=== PATIENT | female | born 1945 | race Caucasian/White ===

== ENCOUNTER 2017-08-20 04:42 | Inpatient (IN) | payer MEDICAID ==
[2017-08-20 07:56] LABS: WHITE BLOOD COUNT 9.8 10^3/ul (4.8-10.8)
[2017-08-20 07:56] LABS: ABNORMAL IP MESSAGE 1; HEMATOCRIT 35.1 % (37.0-47.0); HEMOGLOBIN 11.4 g/dl (12.0-16.0); MEAN CORPUSCULAR HEMOGLOBIN 29.8 pg (29.0-33.0); MEAN CORPUSCULAR HGB CONC 32.5 g/dl (32.0-37.0); MEAN CORPUSCULAR VOLUME 91.6 fl (82.0-101.0); RED BLOOD COUNT 3.83 10^6/ul (4.20-5.40); RED CELL DISTRIBUTION WIDTH 15.9 % (11.5-14.5)
[2017-08-20 07:58] LABS: PLATELET COUNT 3 10^3/UL (140-415)
[2017-08-20 07:59] LABS: ADD MAN DIFF? YES; PATH REVIEW? YES; POSITIVE DIFF @See below
[2017-08-20 08:17] LABS: ALANINE AMINOTRANSFERASE 28 IU/L (13-69); ALBUMIN 4.2 g/dl (3.3-4.9); ALBUMIN/GLOBULIN RATIO 1.16; ALKALINE PHOSPHATASE 92 IU/L (42-121); ANION GAP 18 (8-16); ASPARTATE AMINO TRANSFERASE 24 IU/L (15-46); BILIRUBIN,INDIRECT 0.5 mg/dl (0-1.1); BILIRUBIN,TOTAL 0.5 mg/dl (0.2-1.3); BLOOD UREA NITROGEN 22 mg/dl (7-20); CALCIUM 8.7 mg/dl (8.4-10.2); CARBON DIOXIDE 28 mmol/L (21-31); CHLORIDE 102 mmol/L (97-110); CREATININE 0.97 mg/dl (0.44-1.00); GLUCOSE 110 mg/dl (70-220); POTASSIUM 3.9 mmol/L (3.5-5.1); SODIUM 144 mmol/L (135-144); TOTAL PROTEIN 7.8 g/dl (6.1-8.1)
[2017-08-20 08:20] LABS: ADD UMIC YES; UR ASCORBIC ACID NEGATIVE (NEGATIVE); UR BACTERIA FEW /HPF (NONE SEEN); UR BILIRUBIN (Dip) NEGATIVE (NEGATIVE); UR BLOOD (Dip) 3+ mg/dL (NEGATIVE); UR CLARITY CLEAR (CLEAR); UR COLOR YELLOW (YELLOW); UR GLUCOSE (Dip) NEGATIVE (NEGATIVE); UR KETONES (Dip) NEGATIVE (NEGATIVE); UR LEUKOCYTE ESTERASE (Dip) NEGATIVE Leu/ul (NEGATIVE); UR MUCUS FEW /HPF (NONE SEEN); UR NITRITE (Dip) NEGATIVE (NEGATIVE); UR RBC 42 /HPF (0-5); UR SPECIFIC GRAVITY (Dip) 1.018 (1.003-1.030); UR TOTAL PROTEIN (Dip) NEGATIVE (NEGATIVE); UR UROBILINOGEN (Dip) 2+ mg/dL (NEGATIVE); UR WBC 4 /HPF (0-5)
[2017-08-20 08:46] LABS: INR 1.05; PROTIME 13.8 Sec (11.9-14.9); PT RATIO 1.1
[2017-08-20 08:47] LABS: PARTIAL THROMBOPLASTIN TIME 28.6 Sec (25.0-35.0)
[2017-08-20 09:07] LABS: BAND NEUTROPHILS #M 0.3 10^3/ul (0.0-0.6); BAND NEUTROPHILS % (M) 4 % (0-4); EOSINOPHILS % (M) 8 % (0-7); LYMPHOCYTES #M 2.6 10^3/ul (0.8-2.9); LYMPHOCYTES % (M) 27 % (15-51); METAMYELOCYTES %M 1 % (0-0); MICROCYTOSIS 1+ (0-0); MONOCYTE #M 0.2 10^3/ul (0.3-0.9); MONOCYTES % (M) 3 % (0-11); OVALOCYTES 1+ (0-0); PLATELET ESTIMATE SIG DECREASED; POLYCHROMASIA 1+ (0-0); SEG NEUT #M 5.6 10^3/ul (1.7-7.5); SEGMENTED NEUTROPHILS (M) % 57 % (39-77); SMUDGE%M 5 % (0-0)
[2017-08-20] MEDS ORDERED: ACETAMINOPHEN 325 MG TAB PO (10:00)
[2017-08-20] MEDS ORDERED: ONDANSETRON 4 MG INJ IV (10:00)
[2017-08-20 14:46] LABS: HAAIG REFLEX REFLEX FILED
[2017-08-20 15:21] LABS: IRON 46 ug/dl (35-150)
[2017-08-20 15:32] LABS: % IRON SATURATION 12 % SAT (22-52); TOTAL IRON BINDING CAPACITY 372 ug/dl (241-421)
[2017-08-20 15:55] LABS: HEPATITIS B SURFACE ANTIGEN NEGATIVE (NEGATIVE)
[2017-08-20 16:12] LABS: HEPATITIS B CORE ANTIBODY NEGATIVE (NEGATIVE); HEPATITIS C VIRAL ANTIBODY NEGATIVE (NEGATIVE)
[2017-08-20 16:28] LABS: FOLATE 17.7 ng/ml (2.8-20.0)
[2017-08-20 16:42] LABS: HIV 1&2 ANTIBODY NEGATIVE (NEGATIVE)
[2017-08-20] MEDS: BARIUM SULF 2% 450 ML BTL (BERRY SMOOTHIE) PO (16:55)
[2017-08-20 17:04] LABS: CARCINOEMBRYONIC ANTIGEN 4.2 ng/ml (0.0-5.0)
[2017-08-20 17:05] LABS: CANCER ANTIGEN 125 13.8 U/ml (0.0-35.0)
[2017-08-20 17:08] LABS: CANCER ANTIGEN 19-9 < 1.4 U/ml (0.0-37.0)
[2017-08-20 20:30] LABS: INR 1.05; PROTIME 13.8 Sec (11.9-14.9); PT RATIO 1.1
[2017-08-20 20:31] LABS: PARTIAL THROMBOPLASTIN TIME 27.1 Sec (25.0-35.0)
[2017-08-20 20:33] LABS: D-DIMER 589.87 ng/ml (<460)
[2017-08-20 20:42] LABS: IMMUNOGLOBULIN A 362 mg/dl (70-400); IMMUNOGLOBULIN G 1380 mg/dl (700-1600); IMMUNOGLOBULIN M 61 mg/dl (40-230)
[2017-08-21] MEDS ORDERED: LEVOTHYROXINE 25 MCG TAB (05:50)
[2017-08-21] MEDS: LEVOTHYROXINE 25 MCG TAB PO (05:53)
[2017-08-21 06:59] LABS: WHITE BLOOD COUNT 7.8 10^3/ul (4.8-10.8)
[2017-08-21 06:59] LABS: ABNORMAL IP MESSAGE 1; HEMATOCRIT 33.8 % (37.0-47.0); HEMOGLOBIN 11.1 g/dl (12.0-16.0); MEAN CORPUSCULAR HEMOGLOBIN 30.2 pg (29.0-33.0); MEAN CORPUSCULAR HGB CONC 32.8 g/dl (32.0-37.0); MEAN CORPUSCULAR VOLUME 91.8 fl (82.0-101.0); RED BLOOD COUNT 3.68 10^6/ul (4.20-5.40)
[2017-08-21 07:24] LABS: ANION GAP 16 (8-16); BLOOD UREA NITROGEN 14 mg/dl (7-20); CALCIUM 8.8 mg/dl (8.4-10.2); CARBON DIOXIDE 27 mmol/L (21-31); CHLORIDE 105 mmol/L (97-110); CREATININE 0.77 mg/dl (0.44-1.00); GLUCOSE 109 mg/dl (70-220); POTASSIUM 4.2 mmol/L (3.5-5.1); SODIUM 144 mmol/L (135-144)
[2017-08-21 07:44] LABS: ADD MAN DIFF? YES; PLATELET COUNT 5 10^3/UL (140-415); POSITIVE DIFF @See below
[2017-08-21 09:13] LABS: BAND NEUTROPHILS #M 0.1 10^3/ul (0.0-0.6); BAND NEUTROPHILS % (M) 2 % (0-4); BASOPHILS % (M) 1 % (0-2); EOSINOPHILS % (M) 4 % (0-7); LYMPHOCYTES #M 1.5 10^3/ul (0.8-2.9); LYMPHOCYTES % (M) 20 % (15-51); MONOCYTE #M 0.5 10^3/ul (0.3-0.9); MONOCYTES % (M) 7 % (0-11); PLATELET ESTIMATE SIG DECREASED; POLYCHROMASIA 1+ (0-0); REACTIVE LYMPHOCYTES #M 0.2 10^3/ul (0.0-0.0); REACTIVE LYMPHOCYTES% (M) 3 % (0-0); SEG NEUT #M 4.9 10^3/ul (1.7-7.5); SEGMENTED NEUTROPHILS (M) % 63 % (39-77)
[2017-08-21] MEDS: DEXAMETHASONE 4 MG TAB PO (09:28)
[2017-08-21] MEDS: LOSARTAN 50 MG TAB PO (09:28)
[2017-08-21] MEDS: ACETAMINOPHEN 325 MG TAB PO (20:31)
[2017-08-22 01:43] LABS: PROTEIN, TOTAL 7.6 g/dL (6.1-8.1)
[2017-08-22 05:50] LABS: ADD MAN DIFF? NO
[2017-08-22 06:07] LABS: WHITE BLOOD COUNT 13.2 10^3/ul (4.8-10.8)
[2017-08-22 06:07] LABS: ABNORMAL IP MESSAGE 1; BASOPHILS % 0.2 % (0.0-2.0); HEMATOCRIT 35.5 % (37.0-47.0); HEMOGLOBIN 11.6 g/dl (12.0-16.0); LYMPHOCYTES # 1.7 10^3/ul (0.8-2.9); LYMPHOCYTES % 12.8 % (15.0-51.0); MEAN CORPUSCULAR HEMOGLOBIN 29.7 pg (29.0-33.0); MEAN CORPUSCULAR HGB CONC 32.7 g/dl (32.0-37.0); MEAN CORPUSCULAR VOLUME 90.8 fl (82.0-101.0); MONOCYTE # 0.3 10^3/ul (0.3-0.9); MONOCYTES % 2.1 % (0.0-11.0); NEUTROPHILS % 82.9 % (39.0-77.0); NUCLEATED RED BLOOD CELLS% 0.2 /100WBC (0.0-0.0); RED BLOOD COUNT 3.91 10^6/ul (4.20-5.40); RED CELL DISTRIBUTION WIDTH 15.6 % (11.5-14.5)
[2017-08-22 06:20] LABS: PLATELET COUNT 15 10^3/UL (140-415); POSITIVE DIFF @See below
[2017-08-22 06:56] LABS: ANION GAP 19 (8-16); BLOOD UREA NITROGEN 20 mg/dl (7-20); CALCIUM 9.5 mg/dl (8.4-10.2); CARBON DIOXIDE 26 mmol/L (21-31); CHLORIDE 102 mmol/L (97-110); CREATININE 0.68 mg/dl (0.44-1.00); GLUCOSE 159 mg/dl (70-220); POTASSIUM 4.2 mmol/L (3.5-5.1); SODIUM 143 mmol/L (135-144)
[2017-08-22] MEDS: LEVOTHYROXINE 25 MCG TAB PO (07:00)
[2017-08-22 11:05] LABS: TYPE AND SCREEN 1 1
[2017-08-22] MEDS: DIPHENHYDRAMINE 50 MG INJ (12:45)
[2017-08-22] MEDS: FENTAnyl 50 MCG/ML VIAL (12:53)
[2017-08-22] MEDS: LIDOCAINE 1% (MDV) 20 ML INJ (13:08)
[2017-08-22 13:27] LABS: ANA SCREEN NEGATIVE (NEGATIVE)
[2017-08-22] MEDS: PANTOPRAZOLE (EC) 40 MG TAB PO ×2 (16:37→16:39)
[2017-08-22] MEDS: LOSARTAN 50 MG TAB PO (16:37)
[2017-08-22] MEDS: DEXAMETHASONE 4 MG TAB PO (16:38)
[2017-08-22 18:36] LABS: PLATELET ANTIBODY - IGA POSITIVE (NEGATIVE); PLATELET ANTIBODY - IGG NEGATIVE (NEGATIVE); PLATELET ANTIBODY - IGM NEGATIVE (NEGATIVE)
[2017-08-22 23:03] LABS: ALBUMIN 3.9 g/dL (3.8-4.8); ALPHA-1-GLOBULINS 0.4 g/dL (0.2-0.3); ALPHA-2-GLOBULINS 0.8 g/dL (0.5-0.9); BETA 2 GLOBULINS 0.5 g/dL (0.2-0.5); BETA GLOBULINS 0.5 g/dL (0.4-0.6); GAMMA GLOBULINS 1.4 g/dL (0.8-1.7)
[2017-08-23] MEDS: LEVOTHYROXINE 25 MCG TAB PO (05:56)
[2017-08-23] MEDS: PANTOPRAZOLE (EC) 40 MG TAB PO (05:56)
[2017-08-23 06:07] LABS: ADD MAN DIFF? NO
[2017-08-23 06:10] LABS: ABNORMAL IP MESSAGE 1; BASOPHILS % 0.1 % (0.0-2.0); HEMATOCRIT 34.9 % (37.0-47.0); HEMOGLOBIN 11.5 g/dl (12.0-16.0); LYMPHOCYTES # 1.4 10^3/ul (0.8-2.9); LYMPHOCYTES % 9.1 % (15.0-51.0); MEAN CORPUSCULAR HEMOGLOBIN 29.6 pg (29.0-33.0); MEAN CORPUSCULAR VOLUME 89.9 fl (82.0-101.0); MEAN PLATELET VOLUME 11.3 fl (7.4-10.4); MONOCYTE # 0.3 10^3/ul (0.3-0.9); MONOCYTES % 1.8 % (0.0-11.0); NEUTROPHIL # 13.3 10^3/ul (1.6-7.5); NEUTROPHILS % 87.3 % (39.0-77.0); PLATELET COUNT 69 10^3/UL (140-415); RED BLOOD COUNT 3.88 10^6/ul (4.20-5.40); RED CELL DISTRIBUTION WIDTH 16.1 % (11.5-14.5)
[2017-08-23 06:10] LABS: WHITE BLOOD COUNT 15.2 10^3/ul (4.8-10.8)
[2017-08-23 06:21] LABS: POSITIVE DIFF @See below
[2017-08-23 06:38] LABS: ANION GAP 16 (8-16); BLOOD UREA NITROGEN 27 mg/dl (7-20); CALCIUM 9.6 mg/dl (8.4-10.2); CARBON DIOXIDE 28 mmol/L (21-31); CHLORIDE 103 mmol/L (97-110); CREATININE 0.71 mg/dl (0.44-1.00); GLUCOSE 158 mg/dl (70-220); POTASSIUM 4.4 mmol/L (3.5-5.1); SODIUM 143 mmol/L (135-144)
[2017-08-23] MEDS: LOSARTAN 50 MG TAB PO (08:21)
[2017-08-23] MEDS: DEXAMETHASONE 4 MG TAB PO (08:23)
[2017-08-23] MEDS: ACETAMINOPHEN 325 MG TAB PO (14:29)
[2017-08-24] MEDS: PANTOPRAZOLE (EC) 40 MG TAB PO (05:36)
[2017-08-24] MEDS: LEVOTHYROXINE 25 MCG TAB PO (05:36)
[2017-08-24 06:03] LABS: ADD MAN DIFF? NO
[2017-08-24 06:10] LABS: WHITE BLOOD COUNT 15.3 10^3/ul (4.8-10.8)
[2017-08-24 06:10] LABS: ABNORMAL IP MESSAGE 1; BASOPHILS % 0.1 % (0.0-2.0); HEMATOCRIT 34.9 % (37.0-47.0); HEMOGLOBIN 11.7 g/dl (12.0-16.0); LYMPHOCYTES # 1.6 10^3/ul (0.8-2.9); LYMPHOCYTES % 10.3 % (15.0-51.0); MEAN CORPUSCULAR HGB CONC 33.5 g/dl (32.0-37.0); MEAN CORPUSCULAR VOLUME 89.5 fl (82.0-101.0); MEAN PLATELET VOLUME 11.2 fl (7.4-10.4); MONOCYTE # 1.1 10^3/ul (0.3-0.9); MONOCYTES % 7.3 % (0.0-11.0); NEUTROPHIL # 12.4 10^3/ul (1.6-7.5); NEUTROPHILS % 80.9 % (39.0-77.0); PLATELET COUNT 94 10^3/UL (140-415); RED CELL DISTRIBUTION WIDTH 15.9 % (11.5-14.5)
[2017-08-24 06:16] LABS: POSITIVE DIFF @See below
[2017-08-24] MEDS: LOSARTAN 50 MG TAB PO (08:27)
[2017-08-24] MEDS: DEXAMETHASONE 4 MG TAB PO (08:29)
[2017-08-24] MEDS: MEROPENEM 1 GM/50ML(PMX) 50 ML IVPB ×2 (12:09→20:48)
[2017-08-25 05:50] LABS: ADD MAN DIFF? NO
[2017-08-25 06:01] LABS: BASOPHILS % 0.2 % (0.0-2.0); HEMATOCRIT 35.7 % (37.0-47.0); HEMOGLOBIN 12.1 g/dl (12.0-16.0); LYMPHOCYTES # 1.4 10^3/ul (0.8-2.9); LYMPHOCYTES % 11.1 % (15.0-51.0); MEAN CORPUSCULAR HEMOGLOBIN 30.4 pg (29.0-33.0); MEAN CORPUSCULAR HGB CONC 33.9 g/dl (32.0-37.0); MEAN CORPUSCULAR VOLUME 89.7 fl (82.0-101.0); MEAN PLATELET VOLUME 11.5 fl (7.4-10.4); MONOCYTE # 0.7 10^3/ul (0.3-0.9); MONOCYTES % 6.1 % (0.0-11.0); NEUTROPHIL # 9.9 10^3/ul (1.6-7.5); NEUTROPHILS % 81.1 % (39.0-77.0); PLATELET COUNT 112 10^3/UL (140-415); RED BLOOD COUNT 3.98 10^6/ul (4.20-5.40); RED CELL DISTRIBUTION WIDTH 15.9 % (11.5-14.5)
[2017-08-25 06:01] LABS: WHITE BLOOD COUNT 12.2 10^3/ul (4.8-10.8)
[2017-08-25] MEDS: LEVOTHYROXINE 25 MCG TAB PO (07:01)
[2017-08-25] MEDS: PANTOPRAZOLE (EC) 40 MG TAB PO (07:01)
[2017-08-25] MEDS: LOSARTAN 50 MG TAB PO (08:54)
[2017-08-25] MEDS: MEROPENEM 1 GM/50ML(PMX) 50 ML IVPB (08:55)
[2017-08-25] MEDS: DEXAMETHASONE 4 MG TAB PO (08:55)
== END 2017-08-25 18:30 | disposition home or self-care (01) | DRG 813 ==
LOC: E/R 04:42 → MS2 09:31
PROC: 30233R1 Transfusion of Nonautologous Platelets into Peripheral Vein, Percutaneous Approach (ICD-10-PCS; 2017-08-20)
PROC: 07DR3ZX Extraction of Iliac Bone Marrow, Percutaneous Approach, Diagnostic (ICD-10-PCS; principal; 2017-08-22)
DX: D69.3 Immune thrombocytopenic purpura (principal); N39.0 Urinary tract infection, site not specified; I10 Essential (primary) hypertension; B96.20 Unspecified Escherichia coli [E. coli] as the cause of diseases classified elsewhere; Z16.12 Extended spectrum beta lactamase (ESBL) resistance; E03.9 Hypothyroidism, unspecified; E78.5 Hyperlipidemia, unspecified; M47.26 Other spondylosis with radiculopathy, lumbar region
CPT/HCPCS: 36415; 36430; 72158; 74176; 77012; 80048; 80053; 81001; 82378; 82607; 82746; 82784; 83540; 83735; 84155; 84165; 84443; 85025; 85378; 85384; 85610; 85730; 86022; 86038; 86301; 86304; 86320; 86703; 86704; 86709; 86803; 86850; 86900; 86901; 87086; 87340; 88305; 88311; 88313; 99285-25

== ENCOUNTER 2017-09-07 12:12 | Inpatient (IN) | payer MEDICAID ==
[2017-09-07 15:52] LABS: ABNORMAL IP MESSAGE 1; HEMATOCRIT 36.5 % (37.0-47.0); HEMOGLOBIN 12.4 g/dl (12.0-16.0); MEAN CORPUSCULAR HEMOGLOBIN 30.1 pg (29.0-33.0); MEAN CORPUSCULAR VOLUME 88.6 fl (82.0-101.0); MEAN PLATELET VOLUME 10.7 fl (7.4-10.4); PLATELET COUNT 54 10^3/UL (140-415); RED BLOOD COUNT 4.12 10^6/ul (4.20-5.40)
[2017-09-07 15:52] LABS: WHITE BLOOD COUNT 19.4 10^3/ul (4.8-10.8)
[2017-09-07 15:53] LABS: POSITIVE DIFF @See below
[2017-09-07 15:54] LABS: ADD MAN DIFF? YES
[2017-09-07 16:10] LABS: ALANINE AMINOTRANSFERASE 56 IU/L (13-69); ALBUMIN 3.2 g/dl (3.3-4.9); ALBUMIN/GLOBULIN RATIO 1.23; ALKALINE PHOSPHATASE 81 IU/L (42-121); ANION GAP 13 (8-16); ASPARTATE AMINO TRANSFERASE 24 IU/L (15-46); BILIRUBIN,INDIRECT 0.7 mg/dl (0-1.1); BILIRUBIN,TOTAL 0.7 mg/dl (0.2-1.3); BLOOD UREA NITROGEN 30 mg/dl (7-20); CALCIUM 7.9 mg/dl (8.4-10.2); CARBON DIOXIDE 21 mmol/L (21-31); CHLORIDE 101 mmol/L (97-110); CREATININE 0.67 mg/dl (0.44-1.00); GLUCOSE 118 mg/dl (70-220); LIPASE 1212 U/L (23-300); POTASSIUM 4.7 mmol/L (3.5-5.1); SODIUM 130 mmol/L (135-144); TOTAL PROTEIN 5.8 g/dl (6.1-8.1)
[2017-09-07 16:22] LABS: B-TYPE NATRIURETIC PEPTIDE 227 PG/ML (0-125)
[2017-09-07 16:24] LABS: TROPONIN-I < 0.012 ng/ml (0.00-0.12)
[2017-09-07 16:38] LABS: ADD UMIC YES; UR ASCORBIC ACID NEGATIVE (NEGATIVE); UR BILIRUBIN (Dip) NEGATIVE (NEGATIVE); UR BLOOD (Dip) 2+ mg/dL (NEGATIVE); UR CLARITY CLEAR (CLEAR); UR COLOR YELLOW (YELLOW); UR GLUCOSE (Dip) NEGATIVE (NEGATIVE); UR KETONES (Dip) NEGATIVE (NEGATIVE); UR LEUKOCYTE ESTERASE (Dip) NEGATIVE Leu/ul (NEGATIVE); UR NITRITE (Dip) NEGATIVE (NEGATIVE); UR RBC 10 /HPF (0-5); UR SPECIFIC GRAVITY (Dip) 1.017 (1.003-1.030); UR TOTAL PROTEIN (Dip) NEGATIVE (NEGATIVE); UR UROBILINOGEN (Dip) NEGATIVE (NEGATIVE); UR WBC 0 /HPF (0-5)
[2017-09-07 16:42] LABS: LYMPHOCYTES # 0.8 10^3/ul (0.8-2.9); LYMPHOCYTES #M 0.7 10^3/ul (0.8-2.9); LYMPHOCYTES % (M) 4 % (15-51); MONOCYTE # 0.6 10^3/ul (0.3-0.9); MONOCYTE #M 0.5 10^3/ul (0.3-0.9); MONOCYTES % (M) 3 % (0-11); SEGMENTED NEUTROPHILS (M) % 93 % (39-77)
[2017-09-07] MEDS: LORAZEPAM 2 MG INJ IV (16:47)
[2017-09-07] MEDS ORDERED: ALBUTEROL/IPRATROPIUM (NEB) 3 ML AMP HHN (17:30)
[2017-09-07] MEDS ORDERED: morphine 2 MG INJ IV (17:30)
[2017-09-07] MEDS ORDERED: NACL 0.9% 3 ML SYG IV (17:30)
[2017-09-07] MEDS ORDERED: BISACODYL (EC) 5 MG TAB PO (17:30)
[2017-09-07] MEDS ORDERED: LORAZEPAM 0.5 MG TAB PO (17:30)
[2017-09-07] MEDS ORDERED: ONDANSETRON 4 MG INJ IV (17:30)
[2017-09-07] MEDS: SOD CHLORIDE 0.45% 1,000 ML IV (17:40)
[2017-09-07] MEDS: ALBUTEROL/IPRATROPIUM (NEB) 3 ML AMP HHN (20:00)
[2017-09-07] MEDS: SOD CHLORIDE 0.9% 1,000 ML IV (22:53)
[2017-09-07] MEDS: FAMOTIDINE 20 MG TAB PO (22:53)
[2017-09-07] MEDS: DEXAMETHASONE 4 MG TAB PO (22:54)
[2017-09-08] MEDS: LEVOTHYROXINE 25 MCG TAB PO (06:04)
[2017-09-08] MEDS: SOD CHLORIDE 0.45% 1,000 ML IV (06:04)
[2017-09-08] MEDS: PANTOPRAZOLE (EC) 40 MG TAB PO (06:05)
[2017-09-08] MEDS: ACETAMINOPHEN 325 MG TAB PO (06:24)
[2017-09-08 06:35] LABS: ADD MAN DIFF? NO
[2017-09-08 06:39] LABS: WHITE BLOOD COUNT 11.6 10^3/ul (4.8-10.8)
[2017-09-08 06:39] LABS: ABNORMAL IP MESSAGE 1; BASOPHILS % 0.1 % (0.0-2.0); HEMATOCRIT 33.1 % (37.0-47.0); HEMOGLOBIN 11.5 g/dl (12.0-16.0); LYMPHOCYTES # 0.3 10^3/ul (0.8-2.9); LYMPHOCYTES % 2.4 % (15.0-51.0); MEAN CORPUSCULAR HEMOGLOBIN 30.4 pg (29.0-33.0); MEAN CORPUSCULAR HGB CONC 34.7 g/dl (32.0-37.0); MEAN CORPUSCULAR VOLUME 87.6 fl (82.0-101.0); MEAN PLATELET VOLUME 11.1 fl (7.4-10.4); MONOCYTE # 0.3 10^3/ul (0.3-0.9); MONOCYTES % 2.2 % (0.0-11.0); NEUTROPHIL # 10.9 10^3/ul (1.6-7.5); NEUTROPHILS % 94.1 % (39.0-77.0); PLATELET COUNT 31 10^3/UL (140-415); RED BLOOD COUNT 3.78 10^6/ul (4.20-5.40); RED CELL DISTRIBUTION WIDTH 17.1 % (11.5-14.5)
[2017-09-08 06:59] LABS: POSITIVE DIFF @See below
[2017-09-08 07:22] LABS: ALANINE AMINOTRANSFERASE 51 IU/L (13-69); ALBUMIN 2.6 g/dl (3.3-4.9); ALKALINE PHOSPHATASE 52 IU/L (42-121); ANION GAP 10 (8-16); ASPARTATE AMINO TRANSFERASE 24 IU/L (15-46); BILIRUBIN,INDIRECT 0.7 mg/dl (0-1.1); BILIRUBIN,TOTAL 0.7 mg/dl (0.2-1.3); BLOOD UREA NITROGEN 22 mg/dl (7-20); CARBON DIOXIDE 24 mmol/L (21-31); CHLORIDE 105 mmol/L (97-110); CHOL/HDL RATIO 2.4 RATIO; CHOLESTEROL 102 mg/dl (100-200); CREATININE 0.59 mg/dl (0.44-1.00); GLUCOSE 117 mg/dl (70-220); HDL CHOLESTEROL 42 mg/dl (33-92); LDL CHOLESTEROL,CALCULATED 50 mg/dl; POTASSIUM 4.5 mmol/L (3.5-5.1); SODIUM 134 mmol/L (135-144); TOTAL PROTEIN 5.2 g/dl (6.1-8.1); TRIGLYCERIDES 48 mg/dl (0-149)
[2017-09-08 07:49] LABS: THYROID STIMULATING HORMONE 0.131 MIU/L (0.465-4.680)
[2017-09-08] MEDS: FAMOTIDINE 20 MG TAB PO ×2 (08:08→21:44)
[2017-09-08] MEDS: LOSARTAN 50 MG TAB PO (08:08)
[2017-09-08] MEDS: DEXAMETHASONE 4 MG TAB PO (08:08)
[2017-09-08 08:28] LABS: HEMOGLOBIN A1C 6.4 % (0-5.9)
[2017-09-08 09:11] LABS: ANISOCYTOSIS 1+ (0-0); BAND NEUTROPHILS #M 0.5 10^3/ul (0.0-0.6); BAND NEUTROPHILS % (M) 5 % (0-4); LYMPHOCYTES #M 0.4 10^3/ul (0.8-2.9); LYMPHOCYTES % (M) 4 % (15-51); MONOCYTE #M 0.2 10^3/ul (0.3-0.9); MONOCYTES % (M) 2 % (0-11); PLATELET ESTIMATE SIG DECREASED; SEG NEUT #M 10.4 10^3/ul (1.7-7.5); SEGMENTED NEUTROPHILS (M) % 89 % (39-77); SMUDGE%M 1 % (0-0)
[2017-09-08] MEDS: ALBUTEROL/IPRATROPIUM (NEB) 3 ML AMP HHN ×3 (11:56→20:16)
[2017-09-09] MEDS: PANTOPRAZOLE (EC) 40 MG TAB PO (06:04)
[2017-09-09] MEDS: LEVOTHYROXINE 25 MCG TAB PO (06:04)
[2017-09-09] MEDS: GUAIFENESIN/CODEINE 5ML CUP PO ×2 (06:09→16:04)
[2017-09-09 07:30] LABS: ADD MAN DIFF? NO
[2017-09-09] MEDS: ALBUTEROL/IPRATROPIUM (NEB) 3 ML AMP HHN ×3 (07:40→20:59)
[2017-09-09 08:04] LABS: ANION GAP 10 (8-16); BLOOD UREA NITROGEN 18 mg/dl (7-20); CALCIUM 7.8 mg/dl (8.4-10.2); CARBON DIOXIDE 25 mmol/L (21-31); CHLORIDE 105 mmol/L (97-110); CREATININE 0.58 mg/dl (0.44-1.00); GLUCOSE 106 mg/dl (70-220); MAGNESIUM 2.2 mg/dl (1.7-2.5); PHOSPHORUS 3.2 mg/dl (2.5-4.9); POTASSIUM 4.4 mmol/L (3.5-5.1); SODIUM 136 mmol/L (135-144)
[2017-09-09] MEDS: LOSARTAN 50 MG TAB PO (08:19)
[2017-09-09] MEDS: FAMOTIDINE 20 MG TAB PO ×2 (08:19→20:46)
[2017-09-09] MEDS: DEXAMETHASONE 4 MG TAB PO (08:20)
[2017-09-09 09:03] LABS: WHITE BLOOD COUNT 16.3 10^3/ul (4.8-10.8)
[2017-09-09 09:03] LABS: ABNORMAL IP MESSAGE 1; BASOPHILS % 0.1 % (0.0-2.0); EOSINOPHILS % 0.1 % (0.0-7.0); HEMATOCRIT 33.2 % (37.0-47.0); HEMOGLOBIN 11.3 g/dl (12.0-16.0); LYMPHOCYTES # 0.9 10^3/ul (0.8-2.9); LYMPHOCYTES % 5.3 % (15.0-51.0); MEAN CORPUSCULAR HEMOGLOBIN 30.5 pg (29.0-33.0); MEAN CORPUSCULAR VOLUME 89.5 fl (82.0-101.0); MEAN PLATELET VOLUME 11.5 fl (7.4-10.4); MONOCYTES % 6.2 % (0.0-11.0); NEUTROPHIL # 14.2 10^3/ul (1.6-7.5); RED BLOOD COUNT 3.71 10^6/ul (4.20-5.40); RED CELL DISTRIBUTION WIDTH 17.4 % (11.5-14.5)
[2017-09-09 09:09] LABS: PATH REVIEW? YES; PLATELET COUNT 22 10^3/UL (140-415); POSITIVE DIFF @See below
[2017-09-09 10:33] LABS: MYELOCYTES #M 0.3 10^3/ul (0.0-0.0); MYELOCYTES % (M) 2 % (0-0); POLYCHROMASIA 1+ (0-0); REACTIVE LYMPHOCYTES #M 0.1 10^3/ul (0.0-0.0); REACTIVE LYMPHOCYTES% (M) 1 % (0-0)
[2017-09-09 11:15] LABS: BAND NEUTROPHILS #M 0.3 10^3/ul (0.0-0.6); BAND NEUTROPHILS % (M) 2 % (0-4); EOSINOPHILS % (M) 1 % (0-7); GIANT THROMBO% (M) 1 % (0-0); LYMPHOCYTES #M 0.9 10^3/ul (0.8-2.9); LYMPHOCYTES % (M) 6 % (15-51); MONOCYTE #M 0.3 10^3/ul (0.3-0.9); MONOCYTES % (M) 2 % (0-11); PLATELET ESTIMATE SIG DECREASED; PLATELET MORPHOLOGY COMMENT @See below; SEG NEUT #M 14.4 10^3/ul (1.7-7.5); SEGMENTED NEUTROPHILS (M) % 88 % (39-77); SMUDGE%M 4 % (0-0)
[2017-09-09] MEDS: SALINE 0.65% 45 ML NAS SPRAY NASAL ×2 (16:30→20:46)
[2017-09-10] MEDS: LEVOTHYROXINE 25 MCG TAB PO (06:42)
[2017-09-10 07:59] LABS: ADD MAN DIFF? NO
[2017-09-10 08:04] LABS: ABNORMAL IP MESSAGE 1; BASOPHILS % 0.1 % (0.0-2.0); EOSINOPHILS # 0.1 10^3/ul (0.0-0.5); EOSINOPHILS % 0.3 % (0.0-7.0); HEMATOCRIT 32.6 % (37.0-47.0); HEMOGLOBIN 10.9 g/dl (12.0-16.0); LYMPHOCYTES # 0.9 10^3/ul (0.8-2.9); LYMPHOCYTES % 6.1 % (15.0-51.0); MEAN CORPUSCULAR HEMOGLOBIN 30.3 pg (29.0-33.0); MEAN CORPUSCULAR HGB CONC 33.4 g/dl (32.0-37.0); MEAN CORPUSCULAR VOLUME 90.6 fl (82.0-101.0); MEAN PLATELET VOLUME 11.9 fl (7.4-10.4); MONOCYTES % 6.4 % (0.0-11.0); NEUTROPHIL # 12.8 10^3/ul (1.6-7.5); NEUTROPHILS % 86.1 % (39.0-77.0); RED CELL DISTRIBUTION WIDTH 17.7 % (11.5-14.5)
[2017-09-10 08:04] LABS: WHITE BLOOD COUNT 14.9 10^3/ul (4.8-10.8)
[2017-09-10 08:06] LABS: POSITIVE DIFF @See below
[2017-09-10 08:09] LABS: PLATELET COUNT 16 10^3/UL (140-415)
[2017-09-10 08:26] LABS: ANION GAP 8 (8-16)
[2017-09-10] MEDS: ALBUTEROL/IPRATROPIUM (NEB) 3 ML AMP HHN ×3 (08:27→19:43)
[2017-09-10 08:35] LABS: ALBUMIN 2.5 g/dl (3.3-4.9); BLOOD UREA NITROGEN 18 mg/dl (7-20); CALCIUM 7.9 mg/dl (8.4-10.2); CARBON DIOXIDE 31 mmol/L (21-31); CHLORIDE 103 mmol/L (97-110); CREATININE 0.66 mg/dl (0.44-1.00); GLUCOSE 79 mg/dl (70-220); LIPASE 294 U/L (23-300); MAGNESIUM 2.2 mg/dl (1.7-2.5); PHOSPHORUS 2.8 mg/dl (2.5-4.9); POTASSIUM 4.6 mmol/L (3.5-5.1); SODIUM 137 mmol/L (135-144)
[2017-09-10] MEDS: SALINE 0.65% 45 ML NAS SPRAY NASAL ×2 (09:52→21:37)
[2017-09-10] MEDS: DEXAMETHASONE 4 MG TAB PO (09:52)
[2017-09-10] MEDS: FAMOTIDINE 20 MG TAB PO ×2 (09:53→21:37)
[2017-09-10] MEDS: LOSARTAN 50 MG TAB PO (09:53)
[2017-09-10] MEDS: BALSAM PERU/CASTOR OIL 60 GM TUBE TOP (14:27)
[2017-09-11] MEDS: LEVOTHYROXINE 25 MCG TAB PO (06:18)
[2017-09-11] MEDS: ALBUTEROL/IPRATROPIUM (NEB) 3 ML AMP HHN ×3 (08:11→19:59)
[2017-09-11] MEDS: FAMOTIDINE 20 MG TAB PO ×2 (08:53→20:23)
[2017-09-11] MEDS: LOSARTAN 50 MG TAB PO (08:53)
[2017-09-11] MEDS: SALINE 0.65% 45 ML NAS SPRAY NASAL ×2 (08:53→20:23)
[2017-09-11] MEDS: DEXAMETHASONE 4 MG TAB PO (08:54)
[2017-09-11] MEDS ORDERED: DEXAMETHASONE 1 MG TAB PO (09:00)
[2017-09-11] MEDS: BALSAM PERU/CASTOR OIL 60 GM TUBE TOP (09:00)
[2017-09-11] MEDS ORDERED: IMMUNE GLOBULIN (HUMAN) 6 GM INJ IV (09:00)
[2017-09-11] MEDS ORDERED: WATER STERILE FOR IV (10:00)
[2017-09-11] MEDS ORDERED: IMMUNE GLOBULIN IV (10:00)
[2017-09-11 11:03] LABS: ADD MAN DIFF? NO
[2017-09-11 11:25] LABS: ALBUMIN 2.8 g/dl (3.3-4.9); ANION GAP 11 (8-16); BLOOD UREA NITROGEN 18 mg/dl (7-20); CALCIUM 8.5 mg/dl (8.4-10.2); CARBON DIOXIDE 29 mmol/L (21-31); CHLORIDE 101 mmol/L (97-110); CREATININE 0.61 mg/dl (0.44-1.00); GLUCOSE 90 mg/dl (70-220); MAGNESIUM 1.9 mg/dl (1.7-2.5); PHOSPHORUS 2.8 mg/dl (2.5-4.9); POTASSIUM 4.5 mmol/L (3.5-5.1); SODIUM 136 mmol/L (135-144)
[2017-09-11] MEDS: ACETAMINOPHEN 325 MG TAB PO (11:28)
[2017-09-11] MEDS: DIPHENHYDRAMINE 50 MG INJ IV (11:28)
[2017-09-11 11:39] LABS: WHITE BLOOD COUNT 16.7 10^3/ul (4.8-10.8)
[2017-09-11 11:39] LABS: ABNORMAL IP MESSAGE 1; BASOPHILS % 0.2 % (0.0-2.0); EOSINOPHILS # 0.1 10^3/ul (0.0-0.5); EOSINOPHILS % 0.4 % (0.0-7.0); HEMATOCRIT 34.7 % (37.0-47.0); HEMOGLOBIN 11.9 g/dl (12.0-16.0); LYMPHOCYTES # 0.8 10^3/ul (0.8-2.9); LYMPHOCYTES % 4.8 % (15.0-51.0); MEAN CORPUSCULAR HEMOGLOBIN 30.8 pg (29.0-33.0); MEAN CORPUSCULAR HGB CONC 34.3 g/dl (32.0-37.0); MEAN CORPUSCULAR VOLUME 89.9 fl (82.0-101.0); MONOCYTE # 0.8 10^3/ul (0.3-0.9); NEUTROPHIL # 14.8 10^3/ul (1.6-7.5); NEUTROPHILS % 88.9 % (39.0-77.0); RED BLOOD COUNT 3.86 10^6/ul (4.20-5.40); RED CELL DISTRIBUTION WIDTH 17.2 % (11.5-14.5)
[2017-09-11 11:48] LABS: POSITIVE DIFF @See below
[2017-09-11 11:50] LABS: PLATELET COUNT 8 10^3/UL (140-415)
[2017-09-11] MEDS: WATER STERILE FOR IV (11:56)
[2017-09-11] MEDS: IMMUNE GLOBULIN IV (11:56)
[2017-09-11] MEDS: ZOLPIDEM 5 MG TAB PO (20:23)
[2017-09-12] MEDS: hydrALAzine 20 MG INJ IV (04:32)
[2017-09-12 07:29] LABS: WHITE BLOOD COUNT 7.8 10^3/ul (4.8-10.8)
[2017-09-12 07:29] LABS: ABNORMAL IP MESSAGE 1; HEMOGLOBIN 11.1 g/dl (12.0-16.0); MEAN CORPUSCULAR HEMOGLOBIN 30.4 pg (29.0-33.0); MEAN CORPUSCULAR HGB CONC 33.6 g/dl (32.0-37.0); MEAN CORPUSCULAR VOLUME 90.4 fl (82.0-101.0); MEAN PLATELET VOLUME 13.4 fl (7.4-10.4); RED BLOOD COUNT 3.65 10^6/ul (4.20-5.40); RED CELL DISTRIBUTION WIDTH 17.1 % (11.5-14.5)
[2017-09-12 07:30] LABS: POSITIVE DIFF @See below
[2017-09-12 07:32] LABS: ADD MAN DIFF? YES; PLATELET COUNT 21 10^3/UL (140-415)
[2017-09-12] MEDS: LEVOTHYROXINE 25 MCG TAB PO (07:43)
[2017-09-12 07:58] LABS: ANION GAP 11 (8-16); BLOOD UREA NITROGEN 15 mg/dl (7-20); CARBON DIOXIDE 31 mmol/L (21-31); CHLORIDE 100 mmol/L (97-110); CREATININE 0.58 mg/dl (0.44-1.00); GLUCOSE 81 mg/dl (70-220); MAGNESIUM 1.9 mg/dl (1.7-2.5); PHOSPHORUS 3.5 mg/dl (2.5-4.9); POTASSIUM 4.4 mmol/L (3.5-5.1); SODIUM 138 mmol/L (135-144)
[2017-09-12] MEDS: ALBUTEROL/IPRATROPIUM (NEB) 3 ML AMP HHN ×3 (08:00→20:19)
[2017-09-12] MEDS: BALSAM PERU/CASTOR OIL 60 GM TUBE TOP (09:00)
[2017-09-12] MEDS: DEXAMETHASONE 4 MG TAB PO (09:01)
[2017-09-12] MEDS: LOSARTAN 50 MG TAB PO (09:01)
[2017-09-12] MEDS: FAMOTIDINE 20 MG TAB PO ×2 (09:01→20:50)
[2017-09-12] MEDS: SALINE 0.65% 45 ML NAS SPRAY NASAL ×2 (09:02→20:50)
[2017-09-12 09:21] LABS: BAND NEUTROPHILS #M 0.2 10^3/ul (0.0-0.6); BAND NEUTROPHILS % (M) 3 % (0-4); EOSINOPHILS % (M) 1 % (0-7); LYMPHOCYTES #M 0.3 10^3/ul (0.8-2.9); LYMPHOCYTES % (M) 4 % (15-51); METAMYELOCYTES %M 1 % (0-0); MONOCYTE #M 0.2 10^3/ul (0.3-0.9); MONOCYTES % (M) 3 % (0-11); MYELOCYTES % (M) 1 % (0-0); PLATELET ESTIMATE SIG DECREASED; POLYCHROMASIA 1+ (0-0); REACTIVE LYMPHOCYTES% (M) 1 % (0-0); SEG NEUT #M 6.7 10^3/ul (1.7-7.5); SEGMENTED NEUTROPHILS (M) % 86 % (39-77); SMUDGE%M 4 % (0-0)
[2017-09-12] MEDS: WATER STERILE FOR IV (12:20)
[2017-09-12] MEDS: IMMUNE GLOBULIN IV (12:20)
[2017-09-12] MEDS: traZODone 50 MG TAB PO (20:50)
[2017-09-12] MEDS: DIPHENHYDRAMINE 50 MG INJ IV (20:51)
[2017-09-13] MEDS: LEVOTHYROXINE 25 MCG TAB PO (06:33)
[2017-09-13] MEDS: ALBUTEROL/IPRATROPIUM (NEB) 3 ML AMP HHN ×3 (07:57→20:26)
[2017-09-13 08:01] LABS: ADD MAN DIFF? NO
[2017-09-13 08:06] LABS: WHITE BLOOD COUNT 5.5 10^3/ul (4.8-10.8)
[2017-09-13 08:06] LABS: ABNORMAL IP MESSAGE 1; EOSINOPHILS # 0.1 10^3/ul (0.0-0.5); EOSINOPHILS % 1.1 % (0.0-7.0); HEMOGLOBIN 10.6 g/dl (12.0-16.0); LYMPHOCYTES # 0.7 10^3/ul (0.8-2.9); LYMPHOCYTES % 12.7 % (15.0-51.0); MEAN CORPUSCULAR HEMOGLOBIN 30.4 pg (29.0-33.0); MEAN CORPUSCULAR HGB CONC 33.1 g/dl (32.0-37.0); MEAN CORPUSCULAR VOLUME 91.7 fl (82.0-101.0); MEAN PLATELET VOLUME 11.2 fl (7.4-10.4); MONOCYTE # 0.3 10^3/ul (0.3-0.9); MONOCYTES % 6.2 % (0.0-11.0); NEUTROPHIL # 4.4 10^3/ul (1.6-7.5); NEUTROPHILS % 79.5 % (39.0-77.0); PLATELET COUNT 31 10^3/UL (140-415); RED BLOOD COUNT 3.49 10^6/ul (4.20-5.40); RED CELL DISTRIBUTION WIDTH 16.6 % (11.5-14.5)
[2017-09-13 08:11] LABS: POSITIVE DIFF @See below
[2017-09-13] MEDS: FAMOTIDINE 20 MG TAB PO ×2 (08:56→20:53)
[2017-09-13] MEDS: LOSARTAN 50 MG TAB PO (08:57)
[2017-09-13] MEDS: DEXAMETHASONE 4 MG TAB PO (08:57)
[2017-09-13] MEDS: BALSAM PERU/CASTOR OIL 60 GM TUBE TOP (08:57)
[2017-09-13] MEDS: SALINE 0.65% 45 ML NAS SPRAY NASAL ×2 (08:57→20:53)
[2017-09-13] MEDS: GUAIFENESIN/CODEINE 5ML CUP PO (14:50)
[2017-09-13] MEDS: traZODone 50 MG TAB PO (20:53)
[2017-09-13] MEDS: DIPHENHYDRAMINE 50 MG INJ IV (20:53)
[2017-09-14] MEDS: HYDROCODONE/APAP (5/325) TAB PO (03:52)
[2017-09-14] MEDS: LEVOTHYROXINE 25 MCG TAB PO (06:30)
[2017-09-14 06:40] LABS: ADD MAN DIFF? NO
[2017-09-14 06:44] LABS: ABNORMAL IP MESSAGE 1; HEMATOCRIT 32.9 % (37.0-47.0); HEMOGLOBIN 11.1 g/dl (12.0-16.0); LYMPHOCYTES # 0.5 10^3/ul (0.8-2.9); LYMPHOCYTES % 10.8 % (15.0-51.0); MEAN CORPUSCULAR HEMOGLOBIN 30.7 pg (29.0-33.0); MEAN CORPUSCULAR HGB CONC 33.7 g/dl (32.0-37.0); MEAN CORPUSCULAR VOLUME 90.9 fl (82.0-101.0); MEAN PLATELET VOLUME 9.6 fl (7.4-10.4); MONOCYTE # 0.3 10^3/ul (0.3-0.9); MONOCYTES % 5.8 % (0.0-11.0); NEUTROPHIL # 4.2 10^3/ul (1.6-7.5); PLATELET COUNT 43 10^3/UL (140-415); RED BLOOD COUNT 3.62 10^6/ul (4.20-5.40); RED CELL DISTRIBUTION WIDTH 16.1 % (11.5-14.5)
[2017-09-14 06:55] LABS: POSITIVE DIFF @See below
[2017-09-14] MEDS: SALINE 0.65% 45 ML NAS SPRAY NASAL (09:02)
[2017-09-14] MEDS: BALSAM PERU/CASTOR OIL 60 GM TUBE TOP (09:02)
[2017-09-14] MEDS: FAMOTIDINE 20 MG TAB PO (09:02)
[2017-09-14] MEDS: LOSARTAN 50 MG TAB PO (09:03)
[2017-09-14] MEDS: ALBUTEROL/IPRATROPIUM (NEB) 3 ML AMP HHN ×2 (09:20→13:14)
== END 2017-09-14 18:18 | disposition home or self-care (01) | DRG 813 ==
LOC: E/R 12:12 → TEL 16:49
DX: D69.3 Immune thrombocytopenic purpura (principal); R13.10 Dysphagia, unspecified; I10 Essential (primary) hypertension; R05 Cough; E78.5 Hyperlipidemia, unspecified; J02.9 Acute pharyngitis, unspecified; D72.829 Elevated white blood cell count, unspecified
CPT/HCPCS: 36415; 71045; 74230; 76705; 80048; 80053; 80061; 80069; 81001; 83036; 83690; 83735; 83880; 84100; 84443; 84484; 85025; 87081; 87086; 92526; 92611; 93005; 94640; 94664; 96374; 99285-25; J1566

== ENCOUNTER 2017-09-22 19:02 | Inpatient (IN) | payer MEDICAID ==
[2017-09-22] MEDS: SODIUM CHLORIDE 0.9% 1L BAG IV* (21:09)
[2017-09-22] MEDS: CEFEPIME 2GM/50 ML (PMX) 50 ML IVPB (21:12)
[2017-09-22 21:14] LABS: HEMATOCRIT 26.4 % (37.0-47.0); HEMOGLOBIN 9.1 g/dl (12.0-16.0); MEAN CORPUSCULAR HEMOGLOBIN 31.6 pg (29.0-33.0); MEAN CORPUSCULAR HGB CONC 34.5 g/dl (32.0-37.0); MEAN CORPUSCULAR VOLUME 91.7 fl (82.0-101.0); MEAN PLATELET VOLUME 9.3 fl (7.4-10.4); NUCLEATED RED BLOOD CELLS% 2.3 /100WBC (0.0-0.0); PLATELET COUNT 236 10^3/UL (140-415); RED BLOOD COUNT 2.88 10^6/ul (4.20-5.40); RED CELL DISTRIBUTION WIDTH 17.6 % (11.5-14.5)
[2017-09-22 21:14] LABS: WHITE BLOOD COUNT 5.3 10^3/ul (4.8-10.8)
[2017-09-22 21:19] LABS: ADD MAN DIFF? YES; POSITIVE DIFF @See below
[2017-09-22 21:34] LABS: INR 1.17; PROTIME 15.1 Sec (11.9-14.9); PT RATIO 1.2
[2017-09-22 21:35] LABS: PARTIAL THROMBOPLASTIN TIME 31.3 Sec (25.0-35.0)
[2017-09-22 21:56] LABS: BAND NEUTROPHILS % (M) 20 % (0-4); ERYTHROBLAST% (NRBC) (M) 6 % (0-0); GIANT THROMBO% (M) 1 % (0-0); LYMPHOCYTES #M 1.2 10^3/ul (0.8-2.9); LYMPHOCYTES % (M) 24 % (15-51); METAMYELOCYTES %M 1 % (0-0); MICROCYTOSIS 1+ (0-0); MONOCYTE #M 0.6 10^3/ul (0.3-0.9); MONOCYTES % (M) 12 % (0-11); PLATELET ESTIMATE NORMAL; POLYCHROMASIA 1+ (0-0); REACTIVE LYMPHOCYTES% (M) 1 % (0-0); SEG NEUT #M 2.3 10^3/ul (1.6-7.5); SEGMENTED NEUTROPHILS (M) % 42 % (39-77); SMUDGE%M 4 % (0-0)
[2017-09-22 22:12] LABS: ALANINE AMINOTRANSFERASE 63 IU/L (13-69); ALBUMIN 2.7 g/dl (3.3-4.9); ALBUMIN/GLOBULIN RATIO 0.79; ALKALINE PHOSPHATASE 64 IU/L (42-121); ANION GAP 10 (8-16); ASPARTATE AMINO TRANSFERASE 45 IU/L (15-46); BLOOD UREA NITROGEN 14 mg/dl (7-20); CALCIUM 7.6 mg/dl (8.4-10.2); CARBON DIOXIDE 28 mmol/L (21-31); CHLORIDE 96 mmol/L (97-110); CREATININE 0.62 mg/dl (0.44-1.00); GLUCOSE 110 mg/dl (70-220); POTASSIUM 4.5 mmol/L (3.5-5.1); SODIUM 129 mmol/L (135-144); TOTAL PROTEIN 6.1 g/dl (6.1-8.1)
[2017-09-22] MEDS: morphine 4 MG/ML VIAL IV (22:19)
[2017-09-22 22:35] LABS: TROPONIN-I < 0.012 ng/ml (0.00-0.12)
[2017-09-22] MEDS: ONDANSETRON 4 MG INJ IV (22:40)
[2017-09-22] MEDS: ACETAMINOPHEN 500 MG TAB PO (22:40)
[2017-09-22] MEDS ORDERED: ONDANSETRON 4 MG INJ IV (23:00)
[2017-09-22] MEDS ORDERED: ACETAMINOPHEN 325 MG TAB PO (23:00)
[2017-09-22] MEDS: METOCLOPRAMIDE 10 MG INJ IV (23:26)
[2017-09-22 23:36] LABS: LACTIC ACID 1.1 mmol/L (0.5-2.0)
[2017-09-23] MEDS ORDERED: ACETAMINOPHEN 325 MG TAB PO (01:00)
[2017-09-23] MEDS ORDERED: ONDANSETRON 4 MG INJ IV (01:00)
[2017-09-23] MEDS ORDERED: IPRATROPIUM (NEB) 0.5 MG/2.5 ML AMP HHN (01:00)
[2017-09-23 01:19] LABS: LACTIC ACID 1.1 mmol/L (0.5-2.0)
[2017-09-23] MEDS: LEVALBUTEROL (NEB) 0.63 MG/3 ML AMP HHN ×6 (02:01→21:10)
[2017-09-23] MEDS: METHYLPREDNISOLONE 125 MG INJ IV ×3 (02:10→20:50)
[2017-09-23] MEDS: LEVOFLOXACIN 500MG/D5W (PMX) 100 ML IVPB (02:11)
[2017-09-23] MEDS: FUROSEMIDE 20 MG INJ IV ×2 (02:12→09:51)
[2017-09-23 02:32] LABS: LACTIC ACID 0.7 mmol/L (0.5-2.0)
[2017-09-23] MEDS: SOD CHLORIDE 0.9% 1,000 ML IV ×2 (03:54→14:59)
[2017-09-23 06:24] LABS: WHITE BLOOD COUNT 3.7 10^3/ul (4.8-10.8)
[2017-09-23 06:25] LABS: HEMATOCRIT 25.4 % (37.0-47.0); HEMOGLOBIN 8.5 g/dl (12.0-16.0); MEAN CORPUSCULAR HEMOGLOBIN 30.9 pg (29.0-33.0); MEAN CORPUSCULAR HGB CONC 33.5 g/dl (32.0-37.0); MEAN CORPUSCULAR VOLUME 92.4 fl (82.0-101.0); MEAN PLATELET VOLUME 9.1 fl (7.4-10.4); NUCLEATED RED BLOOD CELLS% 1.4 /100WBC (0.0-0.0); PLATELET COUNT 223 10^3/UL (140-415); RED BLOOD COUNT 2.75 10^6/ul (4.20-5.40); RED CELL DISTRIBUTION WIDTH 18.2 % (11.5-14.5)
[2017-09-23 07:09] LABS: ALANINE AMINOTRANSFERASE 62 IU/L (13-69); ALBUMIN/GLOBULIN RATIO 0.78; ALKALINE PHOSPHATASE 69 IU/L (42-121); ANION GAP 12 (8-16); ASPARTATE AMINO TRANSFERASE 47 IU/L (15-46); BILIRUBIN,INDIRECT 0.8 mg/dl (0-1.1); BILIRUBIN,TOTAL 0.8 mg/dl (0.2-1.3); BLOOD UREA NITROGEN 12 mg/dl (7-20); CALCIUM 7.5 mg/dl (8.4-10.2); CARBON DIOXIDE 26 mmol/L (21-31); CHLORIDE 102 mmol/L (97-110); CREATININE 0.62 mg/dl (0.44-1.00); GLUCOSE 118 mg/dl (70-220); MAGNESIUM 1.8 mg/dl (1.7-2.5); PHOSPHORUS 3.3 mg/dl (2.5-4.9); POTASSIUM 4.1 mmol/L (3.5-5.1); SODIUM 136 mmol/L (135-144); TOTAL PROTEIN 6.8 g/dl (6.1-8.1)
[2017-09-23 07:23] LABS: POSITIVE DIFF @See below
[2017-09-23 07:25] LABS: ADD MAN DIFF? YES
[2017-09-23] MEDS: LEVOTHYROXINE 25 MCG TAB PO (08:51)
[2017-09-23] MEDS: SALMETEROL/FLUTICASONE 250/50 INHA INH ×2 (08:51→20:50)
[2017-09-23] MEDS ORDERED: HEPARIN 5,000 UNIT/0.5 ML VIAL SC (09:00)
[2017-09-23 09:33] LABS: ANISOCYTOSIS 2+ (0-0); BAND NEUTROPHILS #M 1.2 10^3/ul (0.0-0.6); BAND NEUTROPHILS % (M) 33 % (0-4); EOSINOPHILS % (M) 1 % (0-7); ERYTHROBLAST% (NRBC) (M) 1 % (0-0); GIANT THROMBO% (M) 3 % (0-0); LYMPHOCYTES #M 0.3 10^3/ul (0.8-2.9); LYMPHOCYTES % (M) 9 % (15-51); METAMYELOCYTES %M 1 % (0-0); MICROCYTOSIS 1+ (0-0); MONOCYTE #M 0.4 10^3/ul (0.3-0.9); MONOCYTES % (M) 13 % (0-11); MYELOCYTES % (M) 1 % (0-0); PLATELET ESTIMATE NORMAL; POLYCHROMASIA 1+ (0-0); REACTIVE LYMPHOCYTES #M 0.1 10^3/ul (0.0-0.0); REACTIVE LYMPHOCYTES% (M) 4 % (0-0); SEG NEUT #M 1.5 10^3/ul (1.6-7.5); SEGMENTED NEUTROPHILS (M) % 39 % (39-77); SMUDGE%M 22 % (0-0)
[2017-09-23] MEDS ORDERED: BENZONATATE 100 MG CAP PO (18:00)
[2017-09-23] MEDS: ATORVASTATIN 40 MG TAB PO (20:50)
[2017-09-23] MEDS: GUAIFENESIN/DM (SR) TAB PO (20:50)
[2017-09-24] MEDS: LEVOFLOXACIN 500MG/D5W (PMX) 100 ML IVPB (00:54)
[2017-09-24] MEDS: LEVALBUTEROL (NEB) 0.63 MG/3 ML AMP HHN ×5 (02:55→17:16)
[2017-09-24] MEDS: SOD CHLORIDE 0.9% 1,000 ML IV (06:07)
[2017-09-24] MEDS: LEVOTHYROXINE 25 MCG TAB PO (06:07)
[2017-09-24 06:35] LABS: WHITE BLOOD COUNT 5.7 10^3/ul (4.8-10.8)
[2017-09-24 06:35] LABS: HEMATOCRIT 25.9 % (37.0-47.0); HEMOGLOBIN 8.7 g/dl (12.0-16.0); MEAN CORPUSCULAR HEMOGLOBIN 31.3 pg (29.0-33.0); MEAN CORPUSCULAR HGB CONC 33.6 g/dl (32.0-37.0); MEAN CORPUSCULAR VOLUME 93.2 fl (82.0-101.0); NUCLEATED RED BLOOD CELLS% 0.9 /100WBC (0.0-0.0); PLATELET COUNT 222 10^3/UL (140-415); RED BLOOD COUNT 2.78 10^6/ul (4.20-5.40)
[2017-09-24 06:50] LABS: POSITIVE DIFF @See below
[2017-09-24 06:53] LABS: ADD MAN DIFF? YES
[2017-09-24 06:58] LABS: ANION GAP 14 (8-16); BLOOD UREA NITROGEN 15 mg/dl (7-20); CALCIUM 8.1 mg/dl (8.4-10.2); CARBON DIOXIDE 24 mmol/L (21-31); CHLORIDE 106 mmol/L (97-110); CREATININE 0.59 mg/dl (0.44-1.00); GLUCOSE 128 mg/dl (70-220); POTASSIUM 3.9 mmol/L (3.5-5.1); SODIUM 140 mmol/L (135-144)
[2017-09-24 07:47] LABS: ANISOCYTOSIS 1+ (0-0); BAND NEUTROPHILS #M 1.2 10^3/ul (0.0-0.6); BAND NEUTROPHILS % (M) 22 % (0-4); ERYTHROBLAST% (NRBC) (M) 4 % (0-0); GIANT THROMBO% (M) 3 % (0-0); LYMPHOCYTES #M 0.9 10^3/ul (0.8-2.9); LYMPHOCYTES % (M) 17 % (15-51); METAMYELOCYTES %M 1 % (0-0); MICROCYTOSIS 1+ (0-0); MONOCYTE #M 0.3 10^3/ul (0.3-0.9); MONOCYTES % (M) 6 % (0-11); MYELOCYTES #M 0.1 10^3/ul (0.0-0.0); MYELOCYTES % (M) 2 % (0-0); PLATELET ESTIMATE NORMAL; POLYCHROMASIA 3+ (0-0); SEGMENTED NEUTROPHILS (M) % 52 % (39-77); SMUDGE%M 7 % (0-0); THYROID STIMULATING HORMONE 0.623 MIU/L (0.465-4.680)
[2017-09-24] MEDS: FUROSEMIDE 20 MG INJ IV (09:17)
[2017-09-24] MEDS: GUAIFENESIN/DM (SR) TAB PO (09:19)
[2017-09-24] MEDS: METHYLPREDNISOLONE 125 MG INJ IV (09:19)
[2017-09-24] MEDS: SALMETEROL/FLUTICASONE 250/50 INHA INH (09:20)
== END 2017-09-24 18:50 | disposition home or self-care (01) | DRG 871 ==
LOC: MS2 09-23 00:35 → E/R 19:02 → MS2 09-24 12:00
DX: A41.9 Sepsis, unspecified organism (principal); J18.9 Pneumonia, unspecified organism; E87.1 Hypo-osmolality and hyponatremia; Z68.43 Body mass index [BMI] 50.0-59.9, adult; R65.20 Severe sepsis without septic shock; E66.9 Obesity, unspecified; Z71.3 Dietary counseling and surveillance; E03.9 Hypothyroidism, unspecified
CPT/HCPCS: 36415; 71045; 80048; 80053; 83605; 83735; 84100; 84443; 84484; 85025; 85610; 85730; 87040; 87070; 87081; 87400; 93005; 93306; 94640; 94664; 96374; 96375; 99291-25; J1940

== ENCOUNTER 2017-12-29 13:56 | Emergency (ER) | payer MEDICAID ==
[2017-12-29 14:33] LABS: URINE BLOOD (Dip) POC 2+ (NEGATIVE); URINE GLUCOSE (Dip) POC Negative (NEGATIVE); URINE KETONES (Dip) POC Trace (NEGATIVE); URINE LEUKOCYTE EST (Dip) POC Negative (NEGATIVE); URINE NITRITE (Dip) POC Negative (NEGATIVE); URINE TOTAL PROTEIN POC Negative (NEGATIVE)
[2017-12-29] MEDS: KETOROLAC 30 MG INJ IM (14:33)
[2017-12-29] MEDS: HYDROCODONE/APAP (5/325) TAB PO (17:16)
== END 2017-12-29 17:54 | disposition home or self-care (01) ==
LOC: FTE 13:56
DX: M54.5 Low back pain (principal); I10 Essential (primary) hypertension
CPT/HCPCS: 74176; 81003; 96372; 99285-25

== ENCOUNTER 2019-01-05 16:02 | Emergency (ER) | payer MEDICAID ==
[2019-01-05] MEDS: KETOROLAC 30 MG INJ IM (17:46)
== END 2019-01-05 19:12 | disposition home or self-care (01) ==
LOC: FTE 16:02
DX: M54.5 Low back pain (principal); I10 Essential (primary) hypertension
CPT/HCPCS: 72100; 73030; 96372; 99284-25

== ENCOUNTER 2019-02-11 14:09 | Emergency (ER) | payer MEDICAID ==
[2019-02-11 15:29] LABS: ADD MAN DIFF? NO
[2019-02-11 15:48] LABS: BASOPHIL # 0.1 10^3/ul (0.0-0.1); BASOPHILS % 0.4 % (0.0-2.0); EOSINOPHILS # 0.1 10^3/ul (0.0-0.5); EOSINOPHILS % 0.4 % (0.0-7.0); HEMATOCRIT 39.8 % (37.0-47.0); HEMOGLOBIN 13.2 g/dl (12.0-16.0); LYMPHOCYTES # 2.1 10^3/ul (0.8-2.9); MEAN CORPUSCULAR HEMOGLOBIN 29.1 pg (29.0-33.0); MEAN CORPUSCULAR HGB CONC 33.2 g/dl (32.0-37.0); MEAN CORPUSCULAR VOLUME 87.7 fl (82.0-101.0); MEAN PLATELET VOLUME 9.6 fl (7.4-10.4); MONOCYTE # 1.4 10^3/ul (0.3-0.9); MONOCYTES % 8.3 % (0.0-11.0); NEUTROPHIL # 12.6 10^3/ul (1.6-7.5); NEUTROPHILS % 77.2 % (39.0-77.0); PLATELET COUNT 308 10^3/UL (140-415); RED BLOOD COUNT 4.54 10^6/ul (4.20-5.40)
[2019-02-11 15:48] LABS: WHITE BLOOD COUNT 16.3 10^3/ul (4.8-10.8)
[2019-02-11 16:16] LABS: INR 1.11; PARTIAL THROMBOPLASTIN TIME 30.9 Sec (23.0-35.0); PROTIME 14.4 Sec (11.9-14.9); PT RATIO 1.1
[2019-02-11 16:19] LABS: ALANINE AMINOTRANSFERASE 23 IU/L (13-69); ALBUMIN 4.3 g/dl (3.3-4.9); ALBUMIN/GLOBULIN RATIO 1.19; ALKALINE PHOSPHATASE 106 IU/L (42-121); ANION GAP 14 (5-13); ASPARTATE AMINO TRANSFERASE 34 IU/L (15-46); BILIRUBIN,INDIRECT 1.4 mg/dl (0-1.1); BILIRUBIN,TOTAL 1.4 mg/dl (0.2-1.3); BLOOD UREA NITROGEN 14 mg/dl (7-20); CALCIUM 9.6 mg/dl (8.4-10.2); CARBON DIOXIDE 30 mmol/L (21-31); CHLORIDE 100 mmol/L (97-110); CREATINE KINASE 157 IU/L (23-200); CREATININE 1.07 mg/dl (0.44-1.00); D-DIMER 1199.76 ng/ml (<460); GLUCOSE 117 mg/dl (70-220); POTASSIUM 4.5 mmol/L (3.5-5.1); SODIUM 144 mmol/L (135-144); TOTAL PROTEIN 7.9 g/dl (6.1-8.1)
[2019-02-11 16:27] LABS: B-TYPE NATRIURETIC PEPTIDE 234 PG/ML (0-125); CK INDEX 0.6; CK-MB 0.99 ng/ml (0.0-2.4); TROPONIN-I < 0.012 ng/ml (0.000-0.120)
[2019-02-11] MEDS: ALBUTEROL 0.5% (NEB) 2.5 MG/0.5 ML AMP INH (16:42)
[2019-02-11] MEDS: IPRATROPIUM (NEB) 0.5 MG/2.5 ML AMP INH (16:42)
[2019-02-11] MEDS: SOD CHLORIDE 0.9% 1,000 ML IV (17:53)
[2019-02-11] MEDS: BENZONATATE 100 MG CAP PO (17:53)
[2019-02-11] MEDS: IOHEXOL 100 ML (19:18)
[2019-02-11] MEDS: SOD CHLORIDE 0.9% 100 ML (19:18)
== END 2019-02-11 20:00 | disposition home or self-care (01) ==
LOC: E/R 14:09
DX: J40 Bronchitis, not specified as acute or chronic (principal); I10 Essential (primary) hypertension
CPT/HCPCS: 71045; 71275; 80053; 82550; 82553; 83605; 83880; 84484; 85025; 85378; 85610; 85730; 87040-91; 93005; 94644; 99285-25

== ENCOUNTER 2019-02-19 11:44 | Emergency (ER) | payer MEDICAID ==
[2019-02-19] MEDS: DEXAMETHASONE 10 MG/ML 1 ML INJ IM (12:30)
[2019-02-19] MEDS: ALBUTEROL 0.083% (NEB) 2.5 MG/3 ML AMP HHN (12:37)
[2019-02-19] MEDS: IPRATROPIUM (NEB) 0.5 MG/2.5 ML AMP HHN (12:37)
== END 2019-02-19 13:40 | disposition home or self-care (01) ==
LOC: FTE 13:40
DX: J45.901 Unspecified asthma with (acute) exacerbation (principal); I11.0 Hypertensive heart disease with heart failure; I50.9 Heart failure, unspecified
CPT/HCPCS: 94644; 96372; 99284-25